=== PATIENT | male | born 1990 | race Caucasian/White ===

== ENCOUNTER 2016-08-22 17:02 | Emergency (ER) | payer BC ==
[2016-08-22] MEDS ORDERED: NS 2,000 ML IV ONE (17:19)
[2016-08-22] MEDS ORDERED: ONDANSETRON 4 MG/2 ML VIAL IVP ONE (17:19)
[2016-08-22] MEDS ORDERED: ONDANSETRON 4 MG/2 ML VIAL ONE (17:20)
[2016-08-22 17:25] LABS: % IMMATURE GRANULYOCYTES 0.5 % (0.0-1.1); ABSOLUTE IMMATURE GRANULOCYTES 0.04 10^3/uL (0.00-0.10); ADD DIFF? NO; ADD MORPH? NO; ADD SCAN? NO; ATYPICAL LYMPHOCYTE FLAG 0 (0-99); FRAGMENT RBC FLAG 0 (0-99); HEMATOCRIT 44.3 % (40.0-51.0); HEMOGLOBIN 15.6 g/dL (13.7-17.5); LEFT SHIFT FLG 0 (0-99); LIPEMIA HEMOLYSIS FLAG 90 (0-99); MEAN CELL HEMOGLOBIN 32.5 pg (27.9-34.1); MEAN CELL HEMOGLOBIN CONCENTR. 35.2 g/dL (32.4-36.7); MEAN CELL VOLUME 92.3 fL (81.5-99.8); MEAN PLATELET VOLUME 9.2 fL (8.7-11.7); PLATELET CLUMPS FLAG 10 (0-99); PLATELET COUNT 234 10^3/uL (150-400); RED CELL DISTRIBUTION WIDTH 12.7 % (11.5-15.2)
--- NOTE | 2016-08-22 17:27 | UCPHY ---
H & P Patient Type: New Chief Complaint Nursing Narrative: pt states ate raw oysters 24 hours ago then began with n/v/d last night HPI/ROS: HPI CHIEF COMPLAINT: Nausea, vomiting, abdominal cramping after eating oysters HISTORY OF PRESENT ILLNESS: This patient very pleasant 25-year-old male, denies any significant medical history does not take any daily medications, presents to the urgent care with nausea vomiting and diarrhea. Patient tells me that [place], around 5:00 p.m. last night her 24 hours ago he ate raw oysters he tells me about 12 hours after this around for the morning he developed diffuse abdominal cramping watery diarrhea, vomiting, he tells me he has not had a fever he has not had bloody diarrhea or hematemesis. He states he has been watery. He states he has been feeling better however still has nausea. His abdominal pain is resolved. He still has watery diarrhea Past Medical History: Denies significant medical history except for rotator cuff injury left shoulder Past Surgical History: Ankle surgery Social History: lives in [facility], occasional alcohol use, denies marijuana or tobacco or drugs Family History: noncontributory ROS REVIEW OF SYSTEMS: A comprehensive 10 point review of systems is otherwise negative aside from elements mentioned in the history of present illness. Exam Constitutional triage nursing summary reviewed, vital signs reviewed, awake/ alert. Eyes normal conjunctivae and sclera, EOMI, PERRLA. HENT normal inspection, atraumatic, moist mucus membranes, no epistaxis, neck supple/ no meningismus, no raccoon eyes. Respiratory clear to auscultation bilaterally, normal breath sounds, no respiratory distress, no wheezing. Cardiovascular rate normal, regular rhythm, no murmur, no edema, distal pulses normal. Gastrointestinal soft, non-tender, no rebound, no guarding, normal bowel sounds, no distension, no pulsatile mass. Genitourinary no CVA tenderness. Musculoskeletal no midline vertebral tenderness, full range of motion, no calf swelling, no tenderness of extremities, no meningismus, good pulses, neurovascularly intact. Skin pink, warm, & dry, no rash, skin atraumatic. Neurologic awake, alert and oriented x 3, AAOx3, moves all 4 extremities equally, motor intact, sensory intact, CN II-XII intact, normal cerebellar, normal vision, normal speech. Psychiatric normal mood/affect. Heme/Lymph/Immune no lymphadenopathy. Differential Diagnosis: includes but is not limited to in a particular order acute nausea vomiting and diarrhea, electrolyte abnormality, dehydration, acute nausea vomiting diarrhea from undercooked we stairs, Vibrio Infection. Medical Decision Making: This patient had an IV established receive IV fluids, I have ordered him 2 L normal saline, Zofran for nausea. His abdomen is soft nontender. He is not actively vomiting here. He appears well. Will check blood work including lipase, LFTs CBC and BMP. We will re-evaluate shortly. Re-evaluation: 1822: re-evaluation at this time patient is resting comfortably he is not vomiting he p.o. challenge well, is comfortable being discharged home. Prescribed him Zofran for nausea, I have also prescribed him Dewey for pain more for his left shoulder plain as he fell on it recently snowboarding with a rotator cuff injury. He does not want any imaging or evaluation here for this. Understands return to the urgent care or emergency room if develops any worsening symptoms questions or concerns. Source: Patient - Medical/Surgical History Other PMH: denies - Family History Significant Family History: No pertinent family hx - Social History Smoking Status: Never smoked Constitutional: Initial Vital Signs Temperature (C) 37.3 C 08/22/16 17:05 Heart Rate 124 H 08/22/16 17:05 Respiratory Rate 18 08/22/16 17:05 Blood Pressure 123/84 H 08/22/16 17:05 O2 Sat (%) 96 08/22/16 17:05 O2 Delivery Mode Room Air Allergies/Adverse Reactions: No Known Allergies Allergy (Unverified 08/22/16 17:22) Home Medications: Medication Instructions Recorded Hydrocodone/APAP 5/325 [Dewey 1 - 2 tab PO Q4H PRN #10 tab 08/22/16 5/325] Ondansetron HCl [Zofran] 4 mg PO Q4-6PRN PRN #10 tablet 08/22/16 Medical Decision Making - Data Points Laboratory Results: Laboratory Results 08/22/16 17:20 08/22/16 17:20 08/22/16 17:20 WBC 7.57 10^3/uL (3.80-9.50) RBC 4.80 10^6/uL (4.40-6.38) Hgb 15.6 g/dL (13.7-17.5) Hct 44.3 % (40.0-51.0) MCV 92.3 fL (81.5-99.8) MCH 32.5 pg (27.9-34.1) MCHC 35.2 g/dL (32.4-36.7) RDW 12.7 % (11.5-15.2) Plt Count 234 10^3/uL (150-400) MPV 9.2 fL (8.7-11.7) Neut % (Auto) 83.5 H % (39.3-74.2) Lymph % (Auto) 10.4 L % (15.0-45.0) [place] % (Auto) 5.4 % (4.5-13.0) Eos % (Auto) 0.1 L % (0.6-7.6) Baso % (Auto) 0.1 L % (0.3-1.7) Nucleat RBC Rel Count 0.0 % (0.0-0.2) Absolute Neuts (auto) 6.31 10^3/uL (1.70-6.50) Absolute Lymphs (auto) 0.79 L 10^3/uL (1.00-3.00) Absolute Monos (auto) 0.41 10^3/uL (0.30-0.80) Absolute Eos (auto) 0.01 L 10^3/uL (0.03-0.40) Absolute Basos (auto) 0.01 L 10^3/uL (0.02-0.10) Absolute Nucleated RBC 0.00 10^3/uL (0-0.01) Immature Gran % 0.5 % (0.0-1.1) Immature Gran # 0.04 10^3/uL (0.00-0.10) Sodium 141 mEq/L (134-144) Potassium 3.9 mEq/L (3.5-5.2) Chloride 101 mEq/L (97-110) Carbon Dioxide 24 mEq/l (22-31) Anion Gap 16 mEq/L (8-16) BUN 14 mg/dL (7-23) Creatinine 0.9 mg/dL (0.7-1.3) Estimated GFR > 60 Glucose 107 H mg/dL (70-100) Calcium 9.5 mg/dL (8.5-10.4) Total Bilirubin 0.9 mg/dL (0.1-1.4) Conjugated Bilirubin 0.4 mg/dL (0.0-0.5) Unconjugated Bilirubin 0.5 mg/dL (0.0-1.1) AST 49 IU/L (17-59) ALT 55 IU/L (21-72) Alkaline Phosphatase 47 IU/L (38-126) Total Protein 7.0 g/dL (6.3-8.2) Albumin 4.2 g/dL (3.5-5.0) Lipase 68.0 IU/L (23-300) Medications Given: Discontinued Medications Sodium Chloride (Ns) 2,000 mls @ 0 mls/hr IV ONCE ONE PRN Reason: Wide Open Stop: 08/22/16 17:20 Last Admin: 08/22/16 17:15 Dose: 2,000 mls Ondansetron HCl (Zofran) 4 mg IVP EDNOW ONE Stop: 08/22/16 17:20 Last Admin: 08/22/16 17:25 Dose: 4 mg Departure - Departure Disposition: Home, Routine, Self-Care Clinical Impression: Nausea vomiting and diarrhea Condition: Good Instructions: Dehydration (ED), Acute Nausea and Vomiting (ED) Additional Instructions: 1. Eat a very bland diet do not eat spicy fatty greasy foods. 2. Return to the emergency room urgent care if he develops worsening abdominal pain, fever, vomiting. Referrals: OUT OF STATE,. [Primary Care Provider] - As per Instructions Prescriptions: Hydrocodone/APAP 5/325 [Dewey 5/325] 1 - 2 tab PO Q4H PRN #10 tab PRN Reason: Pain, Moderate Ondansetron HCl [Zofran] 4 mg PO Q4-6PRN PRN #10 tablet PRN Reason: Nausea/Vomiting, Use 1st - PQRS PQRS Measurement: n/a
[2016-08-22 17:40] LABS: ALANINE AMINOTRANSFERASE 55 IU/L (21-72); ALBUMIN 4.2 g/dL (3.5-5.0); ALKALINE PHOSPHATASE 47 IU/L (38-126); ANION GAP 16 mEq/L (8-16); ASPARTATE AMINOTRANSFERASE 49 IU/L (17-59); BILIRUBIN,TOTAL 0.9 mg/dL (0.1-1.4); BILIRUBIN-CONJUGATED 0.4 mg/dL (0.0-0.5); BILIRUBIN-UNCONJUGATED 0.5 mg/dL (0.0-1.1); CALCIUM 9.5 mg/dL (8.5-10.4); CARBON DIOXIDE 24 mEq/l (22-31); CHLORIDE 101 mEq/L (97-110); CREATININE 0.9 mg/dL (0.7-1.3); GLOMERULAR FILTRATION RATE > 60; GLUCOSE 107 mg/dL (70-100); POTASSIUM 3.9 mEq/L (3.5-5.2); SODIUM 141 mEq/L (134-144)
[2016-08-22 18:46] VITALS: BP 137/86; PULSE 102; RESP 16; TEMP 98.7; O2SAT 97
== END 2016-08-22 18:46 | disposition home or self-care (01) ==
LOC: CED 17:02
DX: R11.2 Nausea with vomiting, unspecified (principal); R19.7 Diarrhea, unspecified
CPT/HCPCS: 80048-PO; 80076-PO; 83690-PO; 85025-PO; 96361-PO; 96374-PO; G0463-PO; J2405